=== PATIENT | male | born 1970 | race Two or more races ===

== ENCOUNTER 2021-12-25 14:59 | Emergency (ER) | payer OTHER ==
[~2021-12-25] VITALS: Ht 167.6 cm; Wt 84.5 kg
[2021-12-25] MEDS ORDERED: SULFAMETHOX/TRIMETH 10 ML in DEXTROSE 5%-WATER 250 ML IV ONE (16:15)
[2021-12-25] MEDS ORDERED: CefTRIAXone 1 GM/DEXTROSE 50 ML IV ONE (16:15)
[2021-12-25 16:24] LABS: BASOPHILS % (AUTO) 0.3 % (0.0-2.0); EOSINOPHILS % (AUTO) 2.8 % (1.0-6.0); HEMATOCRIT 45.7 % (41-53); HEMOGLOBIN 15.8 g/dL (13.5-17.5); LYMPHOCYTES # (AUTO) 1.4 K/uL (1.0-4.8); LYMPHOCYTES % (AUTO) 19.9 % (22.0-44.0); MEAN CORPUSCULAR HEMOGLOBIN 30.2 pg (26.0-34.0); MEAN CORPUSCULAR HGB CONC 34.5 G/dL (31.0-37.0); MEAN CORPUSCULAR VOLUME 88 fL (80-100); MONOCYTES # (AUTO) 0.8 K/uL (0.1-1.0); MONOCYTES % (AUTO) 11.1 % (2.0-9.0); NEUTROPHILS # (AUTO) 4.7 K/uL (1.8-7.7); NEUTROPHILS % (AUTO) 65.9 % (40.0-70.0); PLATELET COUNT (AUTO) 226 K/uL (150-450); RED BLOOD CELL COUNT(AUTO) 5.23 MIL/uL (4.50-5.90); RED CELL DISTRIBUTION WIDTH 12.7 % (11.5-14.5)
[2021-12-25 16:30] LABS: ANION GAP 5 mmol/L (8-16); CARBON DIOXIDE 31 mmol/L (22-29); CHLORIDE 103 mmol/L (98-107); CREATININE 0.96 mg/dL (0.60-1.30); GLOMERULAR FILTR. RATE CALC > 60 mL/min (>60); GLUCOSE,RANDOM 107 mg/dL (70-110); SODIUM SERUM 139 mmol/L (136-145); UREA NITROGEN, BLOOD 12 mg/dL (7-18)
[2021-12-25 16:36] LABS: ALANINE AMINOTRANSFERASE 31 U/L (12-78); ALBUMIN 3.6 g/dL (3.4-5.0); ALKALINE PHOSPHATASE 124 U/L (46-116); ASPARTATE AMINOTRANSFERASE 26 U/L (15-37); BILIRUBIN,TOTAL 0.6 mg/dL (0.1-1.0); TOTAL PROTEIN, SERUM 7.5 g/dL (6.4-8.2)
[2021-12-25] MEDS ORDERED: SODIUM CHLORIDE 0.9% 100 ML ONE (17:12)
[2021-12-25] MEDS ORDERED: IOHEXOL 350 MG/ML 100 ML VIAL ONE (17:12)
[2021-12-25] MEDS ORDERED: SULF-261 PO (19:19)
[2021-12-25] MEDS ORDERED: CEPH500C3 PO (19:20)
[2021-12-25 19:46] VITALS: BP 127/90
== END 2021-12-25 19:58 | disposition home or self-care (01) ==
LOC: EMS 15:02
DX: L03.211 Cellulitis of face (principal); F19.90 Other psychoactive substance use, unspecified, uncomplicated
CPT/HCPCS: 36415; 70491; 80053; 85025; 87040; 96365; 96367; 99285; J0696; J3490; J7050; J7060; Q9967

== ENCOUNTER 2021-12-28 16:35 | Emergency (ER) | payer OTHER ==
[~2021-12-28] VITALS: Ht 167.6 cm; Wt 89.1 kg
[~2021-12-28 16:35] MED LIST: CEPH500C3 PO; SULF-261 PO
[2021-12-28 18:47] VITALS: BP 132/79
== END 2021-12-28 18:49 | disposition home or self-care (01) ==
LOC: EMS 16:38
DX: L03.211 Cellulitis of face (principal); F15.90 Other stimulant use, unspecified, uncomplicated; Z79.899 Other long term (current) drug therapy
CPT/HCPCS: 99281; Z7502